=== PATIENT | male | born 1975 | race African-American/Black ===

== ENCOUNTER 2019-01-01 09:48 | Emergency (ER) | payer BC, OTHER ==
[2019-01-01] MEDS ORDERED: Ibuprofen 800 MG TAB ONE (10:32)
[2019-01-01] MEDS ORDERED: Cyclobenzaprine 10 MG TAB ONE (10:32)
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
== END 2019-01-01 11:19 | disposition home or self-care (01) ==
LOC: ERS 09:48
DX: S20.211A Contusion of right front wall of thorax, initial encounter (principal); E11.9 Type 2 diabetes mellitus without complications; I10 Essential (primary) hypertension; F17.210 Nicotine dependence, cigarettes, uncomplicated; Z79.899 Other long term (current) drug therapy; V54.5XXA Driver of pick-up truck or van injured in collision with heavy transport vehicle or bus in traffic accident, initial encounter